=== PATIENT | female | born 1945 | race Caucasian/White ===

== ENCOUNTER 2020-01-09 03:39 | Emergency (ER) | END 2020-01-09 04:58 | disposition left against medical advice (07) | LOC: ER 03:39 | DX: Z53.21 Procedure and treatment not carried out due to patient leaving prior to being seen by health care provider (principal) ==

== ENCOUNTER 2020-01-27 15:20 | Emergency (ER) | payer MEDICARE ==
--- NOTE | 2020-01-27 16:22 | ER Document Report ---
ED Fall - General Chief Complaint: Fall Stated Complaint: FALL/HEAD,ELBOW,RIGHT LEG PAIN Time Seen by Provider: 01/27/20 16:11 Primary Care Provider: TERENCE MONROE MD [NO LOCAL MD] - Follow up as needed - HPI Notes: 74-year-old female to the emergency department via EMS with complaints of a fall that occurred just prior to arrival. She complains of right elbow, right hip, right thigh pain. She also states that she fell about 1 month ago and she fractured her lumbar spine. She states she is very concerned that her spine may have been affected during this fall. She does not have any back pain currently and she is wearing a back brace. Her orthopedist is Dr. Monroe. She states that she follow-up she was at a store. She said she was walking through a furniture store when she tripped on a metal ledge along the carpet. She fell over down onto her elbow and struck her arm side of the leg and head. She states initially she had a little bit of a headache but denies any loss of consciousness,, nausea vomiting, neck pain, vision changes. She is not on any blood thinners. She states her headache has completely resolved. - Related data Allergies/Adverse Reactions: cephalexin [From Keflex] Allergy (Verified 01/09/20 03:54) latex Allergy (Verified 01/09/20 03:54) Penicillins Allergy (Verified 01/09/20 03:54) Past Medical History - General Information source: Patient - Social History Smoking Status: Former Smoker Family History: Reviewed & Not Pertinent Musculoskeletal Medical History: Reports Other - lumbar spine fracture Review of Systems - Review of Systems Constitutional: denies: Chills, Fever EENT: No symptoms reported. denies: Blurred vision, Double vision Cardiovascular: denies: Chest pain, Palpitations, Syncope, Dizziness, Lightheaded, Edema Respiratory: denies: Cough, Short of breath Gastrointestinal: denies: Abdominal pain, Diarrhea, Nausea, Vomiting Genitourinary: No symptoms reported Musculoskeletal: See HPI, Joint pain Skin: Other - small abrasion to the right forearm. denies: Change in color Neurological/Psychological: denies: Numbness, Tingling -: Yes All other systems reviewed and negative Physical Exam - Vital signs Vitals: Temp Pulse Resp BP Pulse Ox 97.9 F 85 16 172/88 H 94 01/27/20 15:50 01/27/20 15:50 01/27/20 15:50 01/27/20 15:50 01/27/20 15:50 Interpretation: Normal - General General appearance: Appears well, Alert In distress: None - HEENT Head: Normocephalic, Atraumatic Eyes: Normal Pupils: PERRL Neck: Normal, Supple Notes: no TTP over the midline cervical spine with no step off or deformity - Respiratory Respiratory status: No respiratory distress Chest status: Nontender Breath sounds: Normal Chest palpation: Normal - Cardiovascular Rhythm: Regular Heart sounds: Normal auscultation Murmur: No - Back Notes: patient is wearing a back brace. upon removal there is no TTP over the midline lumbar or thoracic spine. No step off appreciated. - Extremities General upper extremity: Tender - there is mild TTP over the right elbow with noted ecchymosis to suggest contusion. There is mild TTP over the right hip and right thigh without any alex deformities. Patient can ambulate on the lower extremity with mild pain. Negative SLR bilaterally. 5/5 strength against resistance in flexion and extension. - Neurological Neuro grossly intact: Yes Cognition: Normal Orientation: AAOx4 [place] Coma Scale Eye Opening: Spontaneous [place] Coma Scale Verbal: Oriented [place] Coma Scale Motor: Obeys Commands [place] Coma Scale Total: 15 Speech: Normal Motor strength normal: LUE, RUE, LLE, RLE Sensory: Normal - Psychological Associated symptoms: Normal affect, Normal mood - Skin Skin Temperature: Warm - there is a small abrasion to the right upper forearm with bleeding controlled. UTD on tetanus. Course - Re-evaluation Re-evalutation: 01/27/20 Impression: Fall, right elbow contusion, right hip strain. Noted L3 compression fracture. This is a known fracture for the patient. Given she really does not have a lot of pain on her midline spine on exam I do not think that she has an acute change of this. Will have her follow-up with her interior specialist. Encouraged her to take her medicine at home. Initially offered her pain medicine which she denied but upon discharge she would like a shot of Toradol. Have ordered this for her. Encouraged to return if any worsening symptoms. Patient agrees with the plan. - Vital Signs Vital signs: Temp Pulse Resp BP Pulse Ox 97.9 F 90 16 158/88 H 97 01/27/20 15:50 01/27/20 18:29 01/27/20 18:29 01/27/20 18:29 01/27/20 18:29 - Diagnostic Test Radiology reviewed: Image reviewed, Reports reviewed Discharge - Discharge Clinical Impression: Strain of right hip Fall Qualifiers: Encounter type: initial encounter Qualified Code(s): W19.XXXA - Unspecified fall, initial encounter Closed compression fracture of L3 vertebra Qualifiers: Encounter type: subsequent encounter Fracture healing: with routine healing Qualified Code(s): S32.030D - Wedge compression fracture of third lumbar vertebra, subsequent encounter for fracture with routine healing Elbow contusion Qualifiers: Encounter type: initial encounter Laterality: right Qualified Code(s): S50.01XA - Contusion of right elbow, initial encounter Condition: Stable Disposition: HOME, SELF-CARE Instructions: Compression Fracture of the Spine ([facility]), Contusion ([facility]), Muscle Strain ([facility]) Additional Instructions: Follow-up with your interior specialist about your compression fracture. It appears to be stable today. It is at your level of L3. Continue to wear your back brace. You have no other fractures on your x-rays. Use ice for your elbow and your hip. You may take your at home medicines prescribed by her orthopedist for any pain. Rest for the rest of the weekend. Referrals: TERENCE MONROE MD [NO LOCAL MD] - Follow up as needed
--- NOTE | 2020-01-27 17:11 | RADIOLOGY REPORT (SQ) ---
EXAM DESCRIPTION: ELBOW RIGHT AP/LAT IMAGES COMPLETED DATE/TIME: 01/27/2020 3:52 pm REASON FOR STUDY: elbow pain, fall COMPARISON: None. NUMBER OF VIEWS: Two views. TECHNIQUE: AP and lateral radiographic images acquired of the right elbow. LIMITATIONS: None. FINDINGS: MINERALIZATION: Normal. BONES: No acute fracture or dislocation. No worrisome bone lesions. JOINT: No effusion. SOFT TISSUES: No soft tissue swelling. No foreign body. OTHER: No other significant finding. IMPRESSION: NEGATIVE STUDY OF THE RIGHT ELBOW. NO RADIOGRAPHIC EVIDENCE OF ACUTE INJURY. TECHNICAL DOCUMENTATION: JOB ID: [id number] 2010 [employer]- All Rights Reserved Reading location - IP/workstation name: [email or web address]
--- NOTE | 2020-01-27 17:13 | RADIOLOGY REPORT (SQ) ---
EXAM DESCRIPTION: FEMUR RIGHT; HIP RIGHT AP/LATERAL IMAGES COMPLETED DATE/TIME: 01/27/2020 3:52 pm REASON FOR STUDY: thigh pain, fall; fall, hip pain COMPARISON: None. NUMBER OF VIEWS: Four views TECHNIQUE: Two radiographic images acquired of the right femur to include hip and knee in at least o ne projection. AP and frog-leg views of the right hip. LIMITATIONS: None. FINDINGS: MINERALIZATION: Normal. BONES: No acute fracture. No worrisome bone lesions. Normal femoroacetabular joint alignment. SOFT TISSUES: No obvious swelling or foreign body. OTHER: No other significant finding. IMPRESSION: No acute fracture or dislocation of the pelvis, right femur or hip. TECHNICAL DOCUMENTATION: JOB ID: [id number] 2010 [employer]- All Rights Reserved Reading location - IP/workstation name: [email or web address]
--- NOTE | 2020-01-27 17:13 | RADIOLOGY REPORT (SQ) ---
EXAM DESCRIPTION: FEMUR RIGHT; HIP RIGHT AP/LATERAL IMAGES COMPLETED DATE/TIME: 01/27/2020 3:52 pm REASON FOR STUDY: thigh pain, fall; fall, hip pain COMPARISON: None. NUMBER OF VIEWS: Four views TECHNIQUE: Two radiographic images acquired of the right femur to include hip and knee in at least o ne projection. AP and frog-leg views of the right hip. LIMITATIONS: None. FINDINGS: MINERALIZATION: Normal. BONES: No acute fracture. No worrisome bone lesions. Normal femoroacetabular joint alignment. SOFT TISSUES: No obvious swelling or foreign body. OTHER: No other significant finding. IMPRESSION: No acute fracture or dislocation of the pelvis, right femur or hip. TECHNICAL DOCUMENTATION: JOB ID: [id number] 2010 [employer]- All Rights Reserved Reading location - IP/workstation name: [email or web address]
--- NOTE | 2020-01-27 17:15 | RADIOLOGY REPORT (SQ) ---
EXAM DESCRIPTION: L SPINE WHOLE IMAGES COMPLETED DATE/TIME: 01/27/2020 3:52 pm REASON FOR STUDY: fall recent hx of spine fracture COMPARISON: None. NUMBER OF VIEWS: Five views including obliques. TECHNIQUE: AP, lateral, oblique, and sacral radiographic images acquired of the lumbar spine. LIMITATIONS: None. FINDINGS: MINERALIZATION: Normal. SEGMENTATION: Normal. No transitional anatomy. ALIGNMENT: Normal. VERTEBRAE: Technically age indeterminate but chronic appearing severe compression fracture at L3 with approximately 80% height loss. There is no definite acute fracture. Small marginal osteophytes at the endplates. There is subchondral sclerosis at the inferior endplate L5 and superior endplate of t he sacrum. DISCS: Degenerative disc disease with loss of intervertebral disc height at multiple levels. POSTERIOR ELEMENTS: Facet arthropathy L5-S1. HARDWARE: None in the spine. PARASPINAL SOFT TISSUES: Normal. PELVIS: Intact as visualized. No fractures or worrisome bone lesions. SI joints intact. OTHER: No other significant finding. IMPRESSION: 1. Technically age indeterminate compression fracture at L3 has a more chronic appearance given the s clerotic appearance. Clinical correlation and correlation with patient point tenderness recommended. 2. Mild degenerative disc disease, facet arthropathy, and spondylosis. TECHNICAL DOCUMENTATION: JOB ID: [id number] 2010 [employer]- All Rights Reserved Reading location - IP/workstation name: [email or web address]
[2020-01-27] MEDS ORDERED: KETOROLAC TROMETHAMINE 60 MG/2 ML SDV IM ONE (18:18)
[2020-01-27 18:31] VITALS: BP 158/88
== END 2020-01-27 18:29 | disposition home or self-care (01) ==
LOC: ER 15:20
DX: S76.011A Strain of muscle, fascia and tendon of right hip, initial encounter (principal); S50.01XA Contusion of right elbow, initial encounter; S40.811A Abrasion of right upper arm, initial encounter; M79.651 Pain in right thigh; W01.0XXA Fall on same level from slipping, tripping and stumbling without subsequent striking against object, initial encounter; Y92.512 Supermarket, store or market as the place of occurrence of the external cause; S32.030D Wedge compression fracture of third lumbar vertebra, subsequent encounter for fracture with routine healing; W19.XXXD Unspecified fall, subsequent encounter; M51.36 Other intervertebral disc degeneration, lumbar region; M47.816 Spondylosis without myelopathy or radiculopathy, lumbar region
CPT/HCPCS: 99284; 96372; 73070; 73552; 73502; 72110; J1885